=== PATIENT | female | born 1960 | race Caucasian/White ===

== ENCOUNTER → 2024-01-06 15:05 | Outpatient (REF) | payer MEDICARE, OTHER, MEDICAID, SELFPAY | LOC: HWWDC 15:05 | PROVIDERS: ATTENDING PHYSICIAN Family Medicine | DX: Z12.31 Encounter for screening mammogram for malignant neoplasm of breast (principal) | CPT/HCPCS: 77063; 77067 ==

== ENCOUNTER → 2024-02-16 10:19 | Outpatient (REF) | payer MEDICARE, OTHER, MEDICAID, SELFPAY | LOC: HWRAD 10:19 | PROVIDERS: ATTENDING PHYSICIAN Obstetrics & Gynecology Gynecology; FAMILY PHYSICIAN Family Medicine | DX: N95.0 Postmenopausal bleeding (principal) | CPT/HCPCS: 76830; 76856 ==

== ENCOUNTER 2024-02-20 09:18 | Emergency (ER) | payer MEDICARE, OTHER, MEDICAID, SELFPAY ==
[2024-02-20 09:25] VITALS: BP 160/75
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
[2024-02-20] MEDS: MOTRIN 600 MG PO (10:50)
== END 2024-02-20 11:51 | disposition home or self-care (01) ==
LOC: EMR 09:18
PROVIDERS: EMERGENCY PHYSICIAN Emergency Medicine; FAMILY PHYSICIAN Family Medicine
DX: S42.91XA Fracture of right shoulder girdle, part unspecified, initial encounter for closed fracture (principal); W19.XXXA Unspecified fall, initial encounter; Z87.820 Personal history of traumatic brain injury
CPT/HCPCS: 99283; 73030

== ENCOUNTER → 2024-04-16 07:30 | Outpatient (REF) | payer MEDICARE, OTHER, SELFPAY | LOC: CLAB 07:30 | PROVIDERS: ATTENDING PHYSICIAN Obstetrics & Gynecology Gynecology | DX: N84.0 Polyp of corpus uteri (principal); N95.0 Postmenopausal bleeding; N90.89 Other specified noninflammatory disorders of vulva and perineum | CPT/HCPCS: 88305 ==

== ENCOUNTER 2024-05-28 16:58 | Emergency (ER) | payer MEDICARE, OTHER, MEDICAID, SELFPAY ==
[2024-05-28 17:11] VITALS: BP 165/90
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
== END 2024-05-28 22:57 | disposition home or self-care (01) ==
LOC: EMR 16:58
PROVIDERS: EMERGENCY PHYSICIAN Emergency Medicine; FAMILY PHYSICIAN Family Medicine
DX: S01.01XA Laceration without foreign body of scalp, initial encounter (principal); W19.XXXA Unspecified fall, initial encounter; Y92.009 Unspecified place in unspecified non-institutional (private) residence as the place of occurrence of the external cause; Z87.820 Personal history of traumatic brain injury
CPT/HCPCS: 99284; 12002; 70450; 72125

== ENCOUNTER → 2025-01-25 11:04 | Outpatient (REF) | payer MEDICARE, OTHER, MEDICAID, SELFPAY | LOC: HWRAD 11:04 | PROVIDERS: ATTENDING PHYSICIAN Family Medicine | DX: M81.0 Age-related osteoporosis without current pathological fracture (principal); Z78.0 Asymptomatic menopausal state; Z12.31 Encounter for screening mammogram for malignant neoplasm of breast | CPT/HCPCS: 77063; 77067; 77080 ==